=== PATIENT | female | born 1980 | race Caucasian/White ===

== ENCOUNTER 2017-06-15 13:06 | Emergency (ER) | payer MEDICAID, OTHER ==
[2017-06-15] MEDS ORDERED: SODIUM CHLORIDE 0.9% 1,000 ML IV ONE (14:41)
[2017-06-15] MEDS ORDERED: ACETAMINOPHEN IV (For NPO) 1,000 MG in EMPTY BAG 1 BAG IVPB STA (14:42)
--- NOTE | 2017-06-15 14:43 | ED ---
General Adult HPI - General Chief complaint: Vaginal Bleeding Stated complaint: poss miscarriage/early Time Seen by Provider: 06/15/17 14:21 Source: patient, RN notes reviewed, old records reviewed Mode of arrival: ambulatory Limitations: no limitations - History of Present Illness Initial comments: This is a 37-year-old female he has a bowel pain and vaginal bleeding. Patient' s second visit in relation on this for bleeding during . Patient has history of 3 miscarriages and 2 live births, patient is a . Patient had early ultrasound in which showed positive IUP. Patient's significantly less likely progressing into a does feel mildly lightheaded but does not think she may pass out. Also complaining of significant cramping. - Related Data Home Medications Medication Instructions Recorded Confirmed Levothyroxine Sodium [Synthroid] 25 mcg PO MOTUTHFRSA 06/15/17 06/15/17 Levothyroxine Sodium [Synthroid] 50 mcg PO SUWE 06/15/17 06/15/17 Multivitamins, Thera [Multivitamin 1 tab PO DAILY 06/15/17 06/15/17 (formulary)] Progesterone,Micronized 200 mg PO BID 06/15/17 06/15/17 [Prometrium] Allergies Allergy/AdvReac Type Severity Reaction Status Date / Time latex Allergy Rash/Hives Verified 06/15/17 15:26 Sulfa (Sulfonamide Allergy Rash/Hives Verified 06/15/17 15:26 Antibiotics) Review of Systems ROS Statement: Those systems with pertinent positive or pertinent negative responses have been documented in the HPI. ROS Other: All systems not noted in ROS Statement are negative. Past Medical History Past Medical History: Thyroid Disorder Additional Past Medical History / Comment(s): mvp History of Any Multi-Drug Resistant Organisms: None Reported Additional Past Surgical History / Comment(s): laproscopy 3 miscarriages with d & c Past Psychological History: No Psychological Hx Reported Smoking Status: Never smoker Past Alcohol Use History: None Reported Past Drug Use History: None Reported General Exam Limitations: no limitations General appearance: alert, in no apparent distress Head exam: Present: atraumatic, normocephalic, normal inspection Eye exam: Present: normal appearance, PERRL, EOMI. Absent: scleral icterus, conjunctival injection, periorbital swelling ENT exam: Present: normal exam, mucous membranes moist Neck exam: Present: normal inspection. Absent: tenderness, meningismus, lymphadenopathy Respiratory exam: Present: normal lung sounds bilaterally. Absent: respiratory distress, wheezes, rales, rhonchi, stridor Cardiovascular Exam: Present: regular rate, normal rhythm, normal heart sounds. Absent: systolic murmur, diastolic murmur, rubs, gallop, clicks GI/Abdominal exam: Present: soft, normal bowel sounds. Absent: distended, tenderness, guarding, rebound, rigid Extremities exam: Present: normal inspection, full ROM, normal capillary refill. Absent: tenderness, pedal edema, joint swelling, calf tenderness Back exam: Present: normal inspection Neurological exam: Present: alert, oriented X3, CN II-XII intact Psychiatric exam: Present: normal affect, normal mood Skin exam: Present: warm, dry, intact, normal color. Absent: rash Course Vital Signs 06/15/17 06/15/17 06/15/17 13:31 15:06 15:16 Temperature 98.5 F 97.8 F Pulse Rate 102 H 98 Respiratory 20 19 18 Rate Blood Pressure 125/77 115/67 117/68 O2 Sat by Pulse 99 99 Oximetry - Reevaluation(s) Reevaluation #1: 06/15/17 17:00 Patient with no symptoms of lightheadedness or dizziness, no significant bleeding at this time Medical Decision Making - Medical Decision Making 37-year-old year for evaluation of bleeding during , patient is IS NEGATIVE FOR IUP, BETA HAS CONTINUED TO TREND DOWNWARDS, PATIENT WILL FOLLOW-UP WITH OB IN THE OFFICE IN THE NEXT 2 DAYS, DID SPEAK WITH DR. MURO [employer] FOR PATIENT'S OB AND THEY'RE AWARE - Lab Data Result diagrams: 06/15/17 15:04 Lab Results 06/15/17 06/15/17 Range/Units 15:04 15:04 WBC 8.2 (3.8-10.6) k/uL RBC 4.59 (3.80-5.40) m/uL Hgb 10.8 L (11.4-16.0) gm/dL Hct 35.5 (34.0-46.0) % MCV 77.3 L (80.0-100.0) fL MCH 23.6 L (25.0-35.0) pg MCHC 30.5 L (31.0-37.0) g/dL RDW 15.0 (11.5-15.5) % Plt Count 244 (150-450) k/uL Neutrophils % 67 % Lymphocytes % 23 % Monocytes % 7 % Eosinophils % 0 % Basophils % 0 % Neutrophils # 5.5 (1.3-7.7) k/uL Lymphocytes # 1.8 (1.0-4.8) k/uL Monocytes # 0.6 (0-1.0) k/uL Eosinophils # 0.0 (0-0.7) k/uL Basophils # 0.0 (0-0.2) k/uL Hypochromasia Marked Microcytosis Slight Blood Type A Positive Blood Type Recheck A Pos - Radiology Data Radiology results: report reviewed (Ultrasound negative for IUP), image reviewed Disposition Clinical Impression: Miscarriage Disposition: HOME SELF-CARE Condition: Good Instructions: Miscarriage (ED) Referrals: Curry Dawson MD [Primary Care Provider] - 1-2 days
[2017-06-15 16:24] LABS: Basophils % (A) 0 %; CH 23.2; CHCM 30.1; Eosinophils % (A) 0 %; HCT 35.5 % (34.0-46.0); HDW 2.45; HGB 10.8 gm/dL (11.4-16.0); Hypochromasia Marked; Luc # (Auto) 0.19; Luc % (Auto) 2; Lymphocytes # (A) 1.8 k/uL (1.0-4.8); Lymphocytes % (A) 23 %; MCH 23.6 pg (25.0-35.0); MCHC 30.5 g/dL (31.0-37.0); MCV 77.3 fL (80.0-100.0); Mean Platelet Volume 7.4; Microcytosis Slight; Monocytes # (A) 0.6 k/uL (0-1.0); Monocytes % (A) 7 %; Neutrophils # (A) 5.5 k/uL (1.3-7.7); Neutrophils % (A) 67 %; RBC 4.59 m/uL (3.80-5.40); WBC 8.2 k/uL (3.8-10.6); WBC (Perox) 7.95
--- NOTE | 2017-06-15 16:30 | US ---
EXAMINATION TYPE: US OB <=14 wks transvag DATE OF EXAM: 06/15/2017 COMPARISON: none CLINICAL HISTORY: pain. EXAM PERFORMED: Transvaginal (TV) and Transabdominal (TA) EXAM MEASUREMENTS: GESTATIONAL AGE / DATING Physician Established: none Dates by LMP: (8 weeks/1 days) EDC: 01/24/2018 Dates by First Scan: no previous Dates by Current Scan for: no IUP MATERNAL ANATOMY Uterus: 10.6 x 6.0 x 7.8 cm Right Ovary: 3.0 x 2.7 x 2.3 cm Left Ovary: 3.0 x 2.3 x 2.5 cm Post CDS / Adnexa: wnl Presence of free fluid: no Presence of corpus luteal cyst: no Presence of subchorionic bleed: no GESTATION / SURVEY MSD: 0.8 cm (5 weeks/3 days) IUP: tear shaped, anechoic sac in lower uterine segment. no yolk sac or pole seen Date of LMP: 04/19/2017 Beta HcG (if available): not available at this time IMPRESSION: Findings suggest spontaneous in progress. Correlate with serial beta hCG and/or ultrasound.
[2017-06-15 16:45] LABS: ALT 26 U/L (9-52); AST 24 U/L (14-36); Alkaline Phosphatase 35 U/L (38-126); Anion Gap 9 mmol/L; Blood Urea Nitrogen 7 mg/dL (7-17); Calcium 8.6 mg/dL (8.4-10.2); Carbon Dioxide 26 mmol/L (22-30); Chloride 105 mmol/L (98-107); Glucose 86 mg/dL (74-99); Non-African American GFR(MDRD) >60 (>60 ml/min/1.73 sqM); Sodium 140 mmol/L (137-145); Total Bilirubin 0.2 mg/dL (0.2-1.3); Total Protein 7.2 g/dL (6.3-8.2)
[2017-06-15 17:24] VITALS: BP 110/63; PULSE 72; RESP 19; TEMP 98.2
== END 2017-06-15 17:41 | disposition home or self-care (01) ==
LOC: EC 13:06
DX: O03.9 Complete or unspecified spontaneous abortion without complication (principal); E07.9 Disorder of thyroid, unspecified; Z91.040 Latex allergy status; Z88.2 Allergy status to sulfonamides; Z3A.08 8 weeks gestation of pregnancy; Z79.899 Other long term (current) drug therapy
CPT/HCPCS: 36415; 86900; 86901; 80053; 85025; 84702; 76801; 76817; 99284; 96374; 96361 ×2; J0131

== ENCOUNTER 2017-06-24 20:37 | Emergency (ER) | payer OTHER ==
--- NOTE | 2017-06-24 21:51 | ED ---
General Adult HPI - General Chief complaint: Vaginal Bleeding Stated complaint: Female Time Seen by Provider: 06/24/17 21:21 Source: patient, RN notes reviewed Mode of arrival: ambulatory Limitations: no limitations - History of Present Illness Initial comments: 37-year-old female presents with chief complaint of vaginal bleeding. Patient was recently diagnosed with spontaneous approximately 9 days. She did have an ultrasound at that time. Placement gestational age of the fetus was 5 weeks. She was 9 weeks by LMP. She had some initial bleeding and small amount of tissue past the first 3 days, that her bleeding resolved and that over the past several days her bleeding has increased, she is passing large clots. She is also having worsening cramping. She is uncertain if she passed any tissue. She was a history of 3 miscarriages in the past. She has 2 living children. She had laboratories drawn on Sunday but is uncertain of the levels of these. Patient has past medical history of hypothyroidism. Only other complaint is mild crampy abdominal pain. No dysuria. No nausea vomiting. No fever or chills. - Related Data Home Medications Medication Instructions Recorded Confirmed Levothyroxine Sodium [Synthroid] 25 mcg PO MOTUTHFRSA 06/15/17 06/24/17 Levothyroxine Sodium [Synthroid] 50 mcg PO SUWE 06/15/17 06/24/17 Multivitamins, Thera [Multivitamin 1 tab PO DAILY 06/15/17 06/24/17 (formulary)] Allergies Allergy/AdvReac Type Severity Reaction Status Date / Time latex Allergy Rash/Hives Verified 06/24/17 21:32 Sulfa (Sulfonamide Allergy Rash/Hives Verified 06/24/17 21:32 Antibiotics) Review of Systems ROS Statement: Those systems with pertinent positive or pertinent negative responses have been documented in the HPI. ROS Other: All systems not noted in ROS Statement are negative. Past Medical History Past Medical History: Thyroid Disorder Additional Past Medical History / Comment(s): mvp History of Any Multi-Drug Resistant Organisms: None Reported Additional Past Surgical History / Comment(s): laproscopy 3 miscarriages with d & c Past Psychological History: No Psychological Hx Reported Smoking Status: Never smoker Past Alcohol Use History: None Reported Past Drug Use History: None Reported General Exam Limitations: no limitations General appearance: alert, in no apparent distress Head exam: Present: atraumatic, normocephalic Eye exam: Present: normal appearance, PERRL ENT exam: Present: mucous membranes moist Neck exam: Present: normal inspection Respiratory exam: Present: normal lung sounds bilaterally. Absent: respiratory distress Cardiovascular Exam: Present: regular rate, normal rhythm GI/Abdominal exam: Present: soft. Absent: distended, tenderness Rectal exam: Present: normal inspection External exam: Present: normal external exam Speculum exam: Present: vaginal bleeding. Absent: cervical discharge, laceration Extremities exam: Present: normal inspection, normal capillary refill. Absent: pedal edema Neurological exam: Present: alert, oriented X3, CN II-XII intact. Absent: motor sensory deficit Psychiatric exam: Present: normal affect, normal mood Skin exam: Present: warm, dry. Absent: cyanosis, diaphoretic, pallor Course Vital Signs 06/24/17 06/24/17 20:45 22:57 Temperature 98.1 F Pulse Rate 87 63 Respiratory 20 18 Rate Blood Pressure 116/72 110/69 O2 Sat by Pulse 100 Oximetry Medical Decision Making - Medical Decision Making 37-year-old female presenting with vaginal bleeding. Patient did have spontaneous approximately 9 days ago. Her bleeding had initially resolved, that over the past 3 days she's had worsening bleeding. With large clots. Patient has a lightheadedness. Denies significant abdominal pain, does have some crampy lower abdominal pain. Patient had an ultrasound that showed gestation approximately 5 weeks, according to her last menstrual period of April 19 there was demise. Patient had a appointment with her UPHOLSTERY TRIMMER over the past several days. Laboratory studies were obtained in the emergency department , hemoglobin is 9.3 which shows a 1 g drop from 9 days ago. Vital signs are stable. Serum beta hCG is down trending, 1600 today. On examination there is close cervix, minimal active bleeding. Ultrasound is obtained, does show hematoma versus retained parts of conception. Case is discussed with the patient's UPHOLSTERY TRIMMER Dr. Perea, she does have good outpatient follow-up. She will have an appointment on Sunday which is 3 days from now. She will return to the emergency department with worsening bleeding or development of signs of significant anemia. Patient is agreeable with this plan. Diagnosis: Vaginal bleeding secondary to miscarriage - Lab Data Result diagrams: 06/24/17 21:41 06/24/17 21:41 Lab Results 06/24/17 06/24/17 06/24/17 Range/Units 21:41 21:41 23:04 WBC 6.1 (3.8-10.6) k/uL RBC 3.94 (3.80-5.40) m/uL Hgb 9.3 L D (11.4-16.0) gm/dL Hct 29.8 L (34.0-46.0) % MCV 75.7 L (80.0-100.0) fL MCH 23.7 L (25.0-35.0) pg MCHC 31.3 (31.0-37.0) g/dL RDW 14.4 (11.5-15.5) % Plt Count 295 (150-450) k/uL Neutrophils % 58 % Lymphocytes % 27 % Monocytes % 10 % Eosinophils % 1 % Basophils % 0 % Neutrophils # 3.5 (1.3-7.7) k/uL Lymphocytes # 1.7 (1.0-4.8) k/uL Monocytes # 0.6 (0-1.0) k/uL Eosinophils # 0.1 (0-0.7) k/uL Basophils # 0.0 (0-0.2) k/uL Hypochromasia Moderate Microcytosis Slight Sodium 139 (137-145) mmol/L Potassium 4.2 (3.5-5.1) mmol/L Chloride 106 (98-107) mmol/L Carbon Dioxide 23 (22-30) mmol/L Anion Gap 10 mmol/L BUN 9 (7-17) mg/dL Creatinine 0.60 (0.52-1.04) mg/dL Est GFR (MDRD) Af Amer >60 (>60 ml/min/1.73 sqM) Est GFR (MDRD) Non-Af >60 (>60 ml/min/1.73 sqM) Glucose 92 (74-99) mg/dL Calcium 9.3 (8.4-10.2) mg/dL Total Bilirubin 0.3 (0.2-1.3) mg/dL AST 26 (14-36) U/L ALT 28 (9-52) U/L Alkaline Phosphatase 38 (38-126) U/L Total Protein 6.9 (6.3-8.2) g/dL Albumin 4.4 (3.5-5.0) g/dL HCG, Quant 1689.9 mIU/mL Urine Color Yellow Urine Appearance Clear (Clear) Urine pH 7.0 (5.0-8.0) Ur Specific Marine 1.011 (1.001-1.035) Urine Protein Negative (Negative) Urine Glucose (UA) Negative (Negative) Urine Ketones Negative (Negative) Urine Blood Small H (Negative) Urine Nitrite Negative (Negative) Urine Bilirubin Negative (Negative) Urine Urobilinogen <2.0 (<2.0) mg/dL Ur Leukocyte Esterase Negative (Negative) Urine RBC <1 (0-5) /hpf Ur Squamous Epith Cells <1 (0-4) /hpf Urine Mucus Rare H (None) /hpf Disposition Clinical Impression: Miscarriage Disposition: HOME SELF-CARE Condition: Good Instructions: Miscarriage (ED) Referrals: Curry Dawson MD [Primary Care Provider] - 1-2 days Faviola Perea DO [Doctor of Osteopathic Medicine] - 1-2 days Time of Disposition: 00:16
[2017-06-24 21:54] LABS: Basophils % (A) 0 %; CH 22.9; CHCM 30.4; Eosinophils # (A) 0.1 k/uL (0-0.7); Eosinophils % (A) 1 %; HCT 29.8 % (34.0-46.0); HDW 2.73; Hypochromasia Moderate; Luc # (Auto) 0.24; Luc % (Auto) 4; Lymphocytes # (A) 1.7 k/uL (1.0-4.8); Lymphocytes % (A) 27 %; MCH 23.7 pg (25.0-35.0); MCHC 31.3 g/dL (31.0-37.0); MCV 75.7 fL (80.0-100.0); Mean Platelet Volume 6.9; Microcytosis Slight; Monocytes # (A) 0.6 k/uL (0-1.0); Monocytes % (A) 10 %; Neutrophils # (A) 3.5 k/uL (1.3-7.7); Neutrophils % (A) 58 %; RBC 3.94 m/uL (3.80-5.40); RDW 14.4 % (11.5-15.5); WBC 6.1 k/uL (3.8-10.6); WBC (Perox) 6.25
[2017-06-24 21:56] LABS: HGB 9.3 gm/dL (11.4-16.0)
[2017-06-24 22:00] LABS: ALT 28 U/L (9-52); AST 26 U/L (14-36); Alkaline Phosphatase 38 U/L (38-126); Anion Gap 10 mmol/L; Blood Urea Nitrogen 9 mg/dL (7-17); Calcium 9.3 mg/dL (8.4-10.2); Carbon Dioxide 23 mmol/L (22-30); Chloride 106 mmol/L (98-107); Glucose 92 mg/dL (74-99); Non-African American GFR(MDRD) >60 (>60 ml/min/1.73 sqM); Potassium 4.2 mmol/L (3.5-5.1); Sodium 139 mmol/L (137-145); Total Bilirubin 0.3 mg/dL (0.2-1.3); Total Protein 6.9 g/dL (6.3-8.2)
[2017-06-24 22:58] VITALS: RESP 18
[2017-06-24 23:20] LABS: Mucus,Urine Rare /hpf; Particle Count 1292; RBC,Urine <1 /hpf (0-5); Squamous Epithelial Cell,Urine <1 /hpf (0-4)
[2017-06-24 23:22] LABS: Appearance,Urine Clear (Clear); Specific Gravity,Urine 1.011 (1.001-1.035)
[2017-06-24 23:23] LABS: Bilirubin,Urine Negative (Negative); Glucose,Urine (UA) Negative (Negative); Ketones,Urine Negative (Negative); Leukocyte Esterase,Urine Negative (Negative); Nitrite,Urine Negative (Negative); Protein,Urine Negative (Negative); UA Billing (MACRO vs. MICRO) MICRO; Urobilinogen,Urine <2.0 mg/dL (<2.0)
--- NOTE | 2017-06-24 23:33 | US ---
EXAM: US Pelvis Complete, Transabdominal CLINICAL HISTORY: Heavy bleeding with clots and pressure in pelvis tonight. Miscarriage on Sunday and bleeding was slowing down, but worsened today. TECHNIQUE: Real-time transabdominal and transvaginal pelvic ultrasound (complete) with image documentation. COMPARISON: No relevant prior studies available. FINDINGS: Uterus/cervix: There are irregular endometrial contents measuring 1.3 cm thick. The uterus measures 11.6 x 6.2 x 7.9 cm. Right ovary: The right ovary measures 3.5 x 1.8 x 1.9 cm. Normal Doppler flow. Left ovary: The left ovary measures 3.5 x 1.3 x 2 cm. Normal Doppler flow. Free fluid: No free fluid. IMPRESSION: Irregular endometrial contents measuring 1.3 cm thick. Differential considerations include hematoma or retained products of conception in the setting of recent miscarriage. An occult ectopic and gestational trophoblastic disease are not excluded. Recommend correlation with serial beta hCG.
[2017-06-25 00:33] VITALS: BP 135/78; PULSE 70; TEMP 98
== END 2017-06-25 00:25 | disposition home or self-care (01) ==
LOC: EC 20:37
DX: O03.9 Complete or unspecified spontaneous abortion without complication (principal); O99.281 Endocrine, nutritional and metabolic diseases complicating pregnancy, first trimester; E07.9 Disorder of thyroid, unspecified; Z3A.01 Less than 8 weeks gestation of pregnancy; Z88.2 Allergy status to sulfonamides; Z91.040 Latex allergy status; Z79.899 Other long term (current) drug therapy
CPT/HCPCS: 36415; 76856; 80053; 81001; 84702; 85025; 93976; 99284

== ENCOUNTER → 2017-07-18 | Outpatient (CLI) | payer OTHER ==
[2017-07-18 10:54] LABS: Basophils % (A) 1 %; CH 21.6; CHCM 27.9; Eosinophils % (A) 1 %; HCT 29.7 % (34.0-46.0); HDW 3.21; HGB 8.4 gm/dL (11.4-16.0); Hypochromasia Marked; Luc # (Auto) 0.17; Luc % (Auto) 4; Lymphocytes # (A) 1.3 k/uL (1.0-4.8); Lymphocytes % (A) 27 %; MCH 22.1 pg (25.0-35.0); MCHC 28.5 g/dL (31.0-37.0); MCV 77.6 fL (80.0-100.0); Mean Platelet Volume 7.7; Monocytes # (A) 0.4 k/uL (0-1.0); Monocytes % (A) 8 %; Neutrophils # (A) 2.8 k/uL (1.3-7.7); Neutrophils % (A) 59 %; RBC 3.83 m/uL (3.80-5.40); RDW 13.4 % (11.5-15.5); WBC 4.7 k/uL (3.8-10.6); WBC (Perox) 4.94
== END | disposition home or self-care (01) ==
LOC: LABWHC1 10:18
PROVIDERS: ATTEND Obstetrics & Gynecology Obstetrics
DX: O03.9 Complete or unspecified spontaneous abortion without complication (principal)
CPT/HCPCS: 36415; 84702; 85025

== ENCOUNTER → 2022-04-05 | Outpatient (CLI) | payer MEDICAID ==
--- NOTE | 2022-04-06 11:48 | MM ---
Reason for Exam: Screening (asymptomatic). Patient History: Menarche at age 15. First Full-Term at age 24. Hormonal Contraceptives for 4 years from age 20 until age 24. Risk Values: Gypsy 5 year model risk: 0.5%. NCI Lifetime model risk: 9.0%. Tissue Density: The breast tissue is extremely dense which could obscure a lesion on mammography. Findings: Analyzed By CAD. There is no suspicious group of microcalcifications or new suspicious mass in either breast. Overall Assessment: Negative, BI-RAD 1 Management: Screening Mammogram of both breasts in 1 year. A clinical breast exam by your physician is recommended on an annual basis and results should be correlated with mammographic findings. Some advise annual bilateral breast ultrasound surveillance in patient's with background dense tissue. Electronically signed and approved by: Jay Martinez M.D.
== END | disposition home or self-care (01) ==
LOC: RADMAMWWP 09:29
PROVIDERS: ATTEND Obstetrics & Gynecology Obstetrics
DX: Z12.31 Encounter for screening mammogram for malignant neoplasm of breast (principal)
CPT/HCPCS: 77063; 77067

== ENCOUNTER → 2023-04-16 | Outpatient (CLI) | payer MEDICAID ==
--- NOTE | 2023-04-17 08:21 | MM ---
Reason for Exam: Screening (asymptomatic). Last screening mammogram was performed 12 month(s) ago. Patient History: Menarche at age 15. First Full-Term at age 24. Hormonal Contraceptives for 4 years from age 20 until age 24. Risk Values: Gypsy 5 year model risk: 0.5%. NCI Lifetime model risk: 9.0%. Prior Study Comparison: 04/05/2022 Bilateral MG 3D screening mammo w/cad, [facility]. Tissue Density: The breast tissue is almost entirely fat. Findings: Analyzed By CAD. There is no suspicious group of microcalcifications or new suspicious mass in either breast. Overall Assessment: Negative, BI-RAD 1 Management: Screening Mammogram of both breasts in [address] [facility] will attempt to contact patient to return for supplemental views and ultrasound if indicated. Patient should continue monthly self-breast exams. A clinical breast exam by your physician is recommended on an annual basis. This exam should not preclude additional follow-up of suspicious palpable abnormalities. Note on Gypsy scores and lifetime risk: 1. A Gypsy score greater than 3% is considered moderate risk. If this is the case, consider specialist referral to assess eligibility for a risk reducing agent. 2. If overall lifetime risk for the development of breast cancer is 20% or higher, the patient may qualify for future screening with alternating mammogram and breast MRI. Electronically signed and approved by: Arias Goldsmith DO
== END | disposition home or self-care (01) ==
LOC: RADMAMWWP 07:22
PROVIDERS: ATTEND Obstetrics & Gynecology Obstetrics
DX: Z12.31 Encounter for screening mammogram for malignant neoplasm of breast (principal)
CPT/HCPCS: 77063; 77067

== ENCOUNTER → 2024-10-16 | Outpatient (CLI) | payer MEDICAID ==
--- NOTE | 2024-10-21 17:46 | MM ---
Reason for Exam: Screening (asymptomatic). Last mammogram was performed 1 year(s) and 6 month(s) ago. Patient History: Menarche at age 15. First Full-Term at age 24. Hormonal Contraceptives for 4 years from age 20 until age 24. Risk Values: Gypsy 5 year model risk: 0.6%. NCI Lifetime model risk: 8.9%. Prior Study Comparison: 04/05/2022 Bilateral MG 3D screening mammo w/cad, [facility]. 04/16/2023 Bilateral MG 3D screening mammo w/cad, [facility]. Tissue Density: The breasts are heterogeneously dense, which may obscure small masses. Findings: Analyzed By CAD. There is no suspicious group of microcalcifications or new suspicious mass in either breast. Overall Assessment: Negative, BI-RAD 1 Management: Screening Mammogram of both breasts in 1 year. . Patient should continue monthly self-breast exams. A clinical breast exam by your physician is recommended on an annual basis. This exam should not preclude additional follow-up of suspicious palpable abnormalities. Note on Gypsy scores and lifetime risk: 1. A Gypsy score greater than 3% is considered moderate risk. If this is the case, consider specialist referral to assess eligibility for a risk reducing agent. 2. If overall lifetime risk for the development of breast cancer is 20% or higher, the patient may qualify for future screening with alternating mammogram and breast MRI. [facility], , 10/21/2024 5:44 PM. Electronically signed and approved by: Maira Payton M.D. Radiologist
== END | disposition home or self-care (01) ==
LOC: RADMAMWWP 13:50
PROVIDERS: ATTEND Obstetrics & Gynecology Obstetrics
DX: Z12.31 Encounter for screening mammogram for malignant neoplasm of breast (principal); R92.333 Mammographic heterogeneous density, bilateral breasts
CPT/HCPCS: 77063; 77067